=== PATIENT | male | born 1940 | race Caucasian/White ===

== ENCOUNTER 2017-04-29 15:17 | Emergency (ER) | payer MEDICARE, OTHER ==
[2017-04-29 16:54] LABS: Bacteria,Urine 1+ /HPF (Negative); Bilirubin,Urine NEG (Negative); Blood,Urine MOD (Negative); Ketones,Urine NEG (Negative); Leukocyte Esterase,Urine NEG (Negative); Mucus,Urine FEW /HPF; Nitrite,Urine NEG (Negative); Protein,Urine <15 mg/dL mg/dL (Negative); Urobilinogen,Urine < 2.0 mg/dL (<2.0); WBC,Urine < 1.0 /HPF (0.0-6.0)
[2017-04-29 17:15] LABS: Albumin 4.4 g/dL (3.9-5); Albumin/Globulin Ratio 1.3 %; BUN/Creatinine Ratio 12.1; Bilirubin,Total 0.3 mg/dL (0.1-1.2); Calcium 9.6 mg/dL (8.4-10.2); Chloride 102.2 mmol/L (98-107); Potassium 4.6 mmol/L (3.6-5.0); Total Protein 7.8 g/dL (6.3-8.2)
[2017-04-29 17:33] LABS: Basophils % (Auto) 0.6 % (0.0-1.8); Eosinophils % (Auto) 0.6 % (0.0-4.3); Hematocrit 42.8 % (35.5-45.6); Mean Corpuscular HGB Conc 33 % (32-34); Mean Corpuscular Hemoglobin 30 pg (28-32); Mean Corpuscular Volume 90 fl (84-94); Platelet Count 200 K/mm3 (140-440); Red Blood Count 4.75 M/mm3 (3.65-5.03); Red Cell Distribution Width 13.5 % (13.2-15.2); White Blood Count 8.1 K/mm3 (4.5-11.0)
[2017-04-29] MEDS ORDERED: ZOFRAN IM ONE (22:22)
[2017-04-29] MEDS ORDERED: MORPHINE IM ONE (22:22)
--- NOTE | 2017-04-29 22:28 | Emergency Department Report ---
HPI - General Chief Complaint: Abdominal Pain Time Seen by Provider: 04/29/17 22:15 - HPI HPI: Room 4 The patient is a 76-year-old male presented with a chief complaint of abdominal pain. The patient states for the past 2 weeks has had intermittent pain in the left lower quadrant. Patient states he also has constipation requiring frequent use of laxatives. Patient states his last bowel movement occurred today. Patient describes pain as sharp in nature. Patient denies nausea vomiting or diarrhea. Patient denies any history of fever. Patient denies dysuria or hematuria. The patient currently gives his pain score of 8-9/10 Location: Left lower quadrant Duration: 2 weeks intermittently Quality: Sharp Severity: 8-9/10 Modifying factors: [see above] Context: [see above] Mode of transportation: [not driving] ED Past Medical Hx - Past Medical History Previous Medical History?: Yes Hx Hypertension: Yes Hx Diabetes: Yes (Type 2) Additional medical history: Neuropathy - Surgical History Past Surgical History?: Yes Hx Cholecystectomy: Yes (1992) Hx Appendectomy: Yes Additional Surgical History: Gallbladder - Family History Family history: no significant - Social History Smoking Status: Never Smoker Substance Use Type: None (denies illicit drug use) - Medications Home Medications: Home Medications Medication Instructions Recorded Confirmed Last Taken Type Amlodipine Besylate/Benazepril 1 each PO QDAY 08/08/16 08/08/16 08/07/16 History [Lotrel 5-40 mg] Gabapentin [Neurontin] 600 mg PO QPM 08/08/16 08/08/16 08/07/16 History Pravastatin Sodium [Pravastatin] 20 mg PO QHS 08/08/16 08/08/16 08/07/16 History Levofloxacin [Levaquin TAB] 500 mg PO QDAY #7 tablet 08/11/16 Unknown Rx metroNIDAZOLE [Flagyl TAB] 250 mg PO Q8HR #20 tablet 08/11/16 Unknown Rx oxyCODONE /ACETAMINOPHEN [Percocet 1 tab PO Q6H PRN #30 tablet 08/11/16 Unknown Rx 5/325 mg] Ketorolac [Toradol] 10 mg PO Q6H PRN #20 tablet 04/29/17 Unknown Rx Ondansetron [Zofran ODT TAB] 8 mg PO Q8HR #20 tab.rapdis 04/29/17 Unknown Rx oxyCODONE /ACETAMINOPHEN [Percocet 1 - 2 tab PO Q6HR PRN #30 tablet 04/29/17 Unknown Rx 5/325] ED Review of Systems ROS: Stated complaint: STOMACH PAIN LT SIDE Other details as noted in HPI Comment: All other systems reviewed and negative Constitutional: denies: chills, fever Eyes: denies: eye pain, eye discharge, vision change ENT: denies: ear pain, throat pain Respiratory: denies: cough, shortness of breath, wheezing Cardiovascular: denies: chest pain, palpitations Endocrine: no symptoms reported Gastrointestinal: abdominal pain, constipation. denies: nausea, vomiting, diarrhea Genitourinary: denies: urgency, dysuria Musculoskeletal: denies: back pain, joint swelling, arthralgia Skin: denies: rash, lesions Neurological: denies: headache, weakness, paresthesias Psychiatric: denies: anxiety, depression Hematological/Lymphatic: denies: easy bleeding, easy bruising Physical Exam - Physical Exam Vital Signs: Vital Signs 04/29/17 15:59 Temperature 98.7 F Pulse Rate 80 Respiratory 16 Rate Blood Pressure 153/84 O2 Sat by Pulse 95 Oximetry Physical Exam: GENERAL: The patient is well-developed well-nourished male sitting on stretcher not appearing to be in acute distress. [] HEENT: Normocephalic. Atraumatic. Extraocular motions are intact. Patient has moist mucous membranes. NECK: Supple. Trachea midline CHEST/LUNGS: Clear to auscultation. There is no respiratory distress noted. HEART/CARDIOVASCULAR: Regular. There is no tachycardia. There is no gallop rub or murmur. ABDOMEN: Abdomen is soft, with mild discomfort to palpation in the suprapubic and left lower quadrant. There is no rebound or guarding. Patient has normal bowel sounds. There is no abdominal distention. SKIN: There is no rash. There is no edema. There is no diaphoresis. NEURO: The patient is awake, alert, and oriented. The patient is cooperative. The patient has normal speech MUSCULOSKELETAL: There is no CVA tenderness. There is no evidence of acute injury. ED Course Vital Signs 04/29/17 15:59 Temperature 98.7 F Pulse Rate 80 Respiratory 16 Rate Blood Pressure 153/84 O2 Sat by Pulse 95 Oximetry - Reevaluation(s) Reevaluation #1: 04/29/17 23:29 Patient is currently pain-free. CT findings discussed with him. The importance of prompt urological follow-up was discussed. Patient given strong one is to return should he develop worsening symptoms or fever ED Medical Decision Making - Lab Data Result diagrams: 04/29/17 16:39 04/29/17 16:39 Laboratory Tests 04/29/17 04/29/17 04/29/17 16:00 16:39 16:39 WBC 8.1 RBC 4.75 Hgb 14.0 Hct 42.8 MCV 90 MCH 30 MCHC 33 RDW 13.5 Plt Count 200 Lymph % (Auto) 31.0 Gosper % (Auto) 12.2 H Eos % (Auto) 0.6 Baso % (Auto) 0.6 Lymph # 2.5 Gosper # 1.0 H Eos # 0.0 Baso # 0.0 Seg Neutrophils % 55.6 Seg Neutrophils # 4.5 Sodium 142 Potassium 4.6 Chloride 102.2 Carbon Dioxide 25 Anion Gap 19 BUN 23 H Creatinine 1.9 H Estimated GFR 42 BUN/Creatinine Ratio 12.10 Glucose 100 Calcium 9.6 Total Bilirubin 0.30 AST 17 ALT 15 Alkaline Phosphatase 73 Total Protein 7.8 Albumin 4.4 Albumin/Globulin Ratio 1.3 Lipase 30 Urine Color Yellow Urine Turbidity Clear Urine pH 5.0 Ur Specific Girdler 1.019 Urine Protein <15 mg/dl Urine Glucose (UA) Neg Urine Ketones Neg Urine Blood Mod Urine Nitrite Neg Urine Bilirubin Neg Urine Urobilinogen < 2.0 Ur Leukocyte Esterase Neg Urine WBC (Auto) < 1.0 Urine RBC (Auto) 14.0 U Epithel Cells (Auto) < 1.0 Urine Bacteria (Auto) 1+ Urine Mucus Few - Radiology Data Radiology results: report reviewed (CT abdomen and pelvis), image reviewed (CT abdomen and pelvis) CT abdomen and pelvis for this is read by radiologist)-12 x 6 x 8 mm calculus in the proximal to mid left ureter causing mild to moderate left sided hydroureteronephrosis. - Differential Diagnosis diverticulitis, renal colic, UTI, pyelonephritis Critical care attestation.: If time is entered above; I have spent that time in minutes in the direct care of this critically ill patient, excluding procedure time. ED Disposition Clinical Impression: Abdominal pain, Renal insufficiency, Renal colic on left side Disposition: DC-01 TO HOME OR SELFCARE Is pt being admited?: No Does the pt Need Aspirin: No Condition: Stable Instructions: Renal Colic (ED) Additional Instructions: Return to the emergency department immediately should you develop worsening symptoms, fever, inability to tolerate food or liquid or any other concerns. Prescriptions: Ketorolac [Toradol] 10 mg PO Q6H PRN #20 tablet PRN Reason: Pain Ondansetron [Zofran ODT TAB] 8 mg PO Q8HR #20 tab.rapdis oxyCODONE /ACETAMINOPHEN [Percocet 5/325] 1 - 2 tab PO Q6HR PRN #30 tablet PRN Reason: Pain Referrals: PRIMARY CARE, [Primary Care Provider] - 3-5 Days ALEX ALVAREZ MD [Staff Physician] - [facility] (Dr. Mcnelil is a urologist. Please follow up with him for further evaluation) Time of Disposition: 23:26
--- NOTE | 2017-04-29 22:55 | Cat Scan Report ---
FINAL REPORT EXAM: CT ABDOMEN PELVIS WO CON HISTORY: left lower quadrant abdominal pain COMPARISON: None available. TECHNIQUE: Contiguous axial images were obtained. Additional sagittal and coronal reformatted images were obtained. FINDINGS: Within the proximal to mid left ureter, there is a 12 x 8 by 6 millimeter calculus causing mild to moderate left-sided hydroureteronephrosis. There additional punctate nonobstructive left renal calculi. Mild left-sided perinephric fat stranding. There are punctate nonobstructive right renal calculi. No hydronephrosis on the right. Mild wall thickening the urinary bladder with adjacent fat stranding concerning for possible cystitis. Prostate gland is grossly unremarkable. Multiple pelvic phleboliths. Mild linear atelectasis at the lung bases. Gallbladder surgically absent. Common bile duct towards the pancreatic head region measures up to 7-8 millimeters, within normal limits for patient age. Liver, spleen, pancreas are grossly unremarkable. Mild nodular thickening of adrenal glands. Aorta is normal in caliber. Large and small bowel loops are normal in caliber. No focal inflammatory changes the bowel. Prior stripe appendix bony pelvis is grossly intact. Mild to moderate degenerative changes of the lumbar spine. IMPRESSION: 12 x 6 x 8 millimeter calculus in the proximal to mid left ureter causing mild to moderate left-sided hydroureteronephrosis. There additional nonobstructive renal calculi bilaterally. Wall thickening and fat stranding urinary bladder concerning for cystitis. Correlation with urinalysis suggested.
[2017-04-29 23:42] VITALS: BP 148/70
== END 2017-04-29 23:44 | disposition home or self-care (01) ==
LOC: ED 15:17
DX: N23 Unspecified renal colic (principal); N28.9 Disorder of kidney and ureter, unspecified; R10.32 Left lower quadrant pain; I10 Essential (primary) hypertension; E11.9 Type 2 diabetes mellitus without complications
CPT/HCPCS: 36415; 74176; 80053; 81001; 83690; 85025; 96372; 99284; J2270; J2405

== ENCOUNTER 2017-05-04 07:35 | Inpatient (IN) | payer MEDICARE, OTHER ==
[2017-05-04 08:18] LABS: Basophils % (Auto) 0.9 % (0.0-1.8); Eosinophils % (Auto) 0.4 % (0.0-4.3); Hemoglobin 14.1 gm/dl (11.8-15.2); Mean Corpuscular HGB Conc 34 % (32-34); Mean Corpuscular Hemoglobin 30 pg (28-32); Mean Corpuscular Volume 89 fl (84-94); Platelet Count 195 K/mm3 (140-440); Red Blood Count 4.73 M/mm3 (3.65-5.03); Red Cell Distribution Width 13.4 % (13.2-15.2); White Blood Count 6.7 K/mm3 (4.5-11.0)
[2017-05-04 08:30] LABS: BUN/Creatinine Ratio 10.76; Calcium 9.6 mg/dL (8.4-10.2); Chloride 102.5 mmol/L (98-107)
[2017-05-04 08:30] LABS: Bilirubin,Urine NEG (Negative); Blood,Urine MOD (Negative); Ketones,Urine NEG (Negative); Leukocyte Esterase,Urine TR (Negative); Nitrite,Urine NEG (Negative); Protein,Urine <15 mg/dL mg/dL (Negative); Urobilinogen,Urine < 2.0 mg/dL (<2.0)
[2017-05-04] MEDS ORDERED: MORPHINE IV ONE (08:42)
[2017-05-04] MEDS ORDERED: NACL 0.9% 1000 ML 1,000 ML IV ONE (08:42)
--- NOTE | 2017-05-04 08:42 | Emergency Department Report ---
HPI - General Chief Complaint: Abdominal Pain Time Seen by Provider: 05/04/17 08:30 - HPI HPI: This is a 76 year-old male presents to the emergency department with a complaint of left-sided flank and abdominal pain and a history of recent kidney stone. The patient was here on April 29 was found to have a 12 x 6 x 8 mm left ureter calculus. He was discharged home to follow up with urology, which he did. There plan was to do lithotripsy but he was called back at the end of the day saying they needed permission by the PCP, Dr. Ricky Najera. The patient was unable to get in touch with his PCP at that late hour. He now presents with increased pain. He denies any fever, nausea, vomiting or any inability to urinate or gross hematuria. He otherwise has a past medical history of gallstones and previous cholecystectomy, previous appendectomy. He has a past medical history of non-insulin dependent diabetes and hypertension. ED Past Medical Hx - Past Medical History Previous Medical History?: Yes Hx Hypertension: Yes Hx Diabetes: Yes (Type 2) Hx HIV: No Additional medical history: Neuropathy - Surgical History Past Surgical History?: Yes Hx Cholecystectomy: Yes (1992) Hx Appendectomy: Yes Additional Surgical History: Gallbladder - Social History Smoking Status: Never Smoker Substance Use Type: None - Medications Home Medications: Home Medications Medication Instructions Recorded Confirmed Last Taken Type oxyCODONE /ACETAMINOPHEN [Percocet 1 tab PO Q6H PRN #30 tablet 08/11/16 Unknown Rx 5/325 mg] Ketorolac [Toradol] 10 mg PO Q6H PRN #20 tablet 04/29/17 05/04/17 Unknown Rx Ondansetron [Zofran ODT TAB] 8 mg PO Q8HR #20 tab.rapdis 04/29/17 05/04/17 Unknown Rx Amlodipine Besylate/Benazepril 1 each PO QDAY 05/04/17 05/04/17 1 Day Ago History [Lotrel 5-40 mg] Cefuroxime Axetil [Ceftin] 250 mg PO BID 05/04/17 05/04/17 Unknown History Dorzolamide/Timolol/Pf [Cosopt Pf 1 drops OU TID 05/04/17 05/04/17 1 Day Ago History Eye Drops] Gabapentin [Neurontin] 300 mg PO BID 05/04/17 05/04/17 1 Day Ago History Pravastatin (Nf) [Pravachol] 80 mg PO QHS 05/04/17 05/04/17 1 Day Ago History ED Review of Systems ROS: Stated complaint: LEFT SIDE ABDOMINAL PAIN,POSSIBLE GALLSTONE Other details as noted in HPI Comment: All other systems reviewed and negative Constitutional: denies: chills, fever Eyes: denies: eye pain, eye discharge, vision change ENT: denies: ear pain, throat pain Respiratory: denies: cough, shortness of breath, wheezing Cardiovascular: denies: chest pain, palpitations Gastrointestinal: abdominal pain. denies: nausea, vomiting Genitourinary: denies: urgency, dysuria Musculoskeletal: denies: back pain, joint swelling, arthralgia Skin: denies: rash, lesions Neurological: denies: headache, weakness, paresthesias Physical Exam - Physical Exam Vital Signs: Vital Signs 05/04/17 07:46 Temperature 98.2 F Pulse Rate 72 Respiratory 16 Rate Blood Pressure 157/86 O2 Sat by Pulse 100 Oximetry Physical Exam: GENERAL: The patient is well-developed well-nourished. HENT: Normocephalic. Atraumatic. Patient has moist mucous membranes. EYES: Extraocular motions are intact. Pupils equal reactive to light bilaterally. NECK: Supple. Trachea is midline. CHEST/LUNGS: Clear to auscultation. There is no respiratory distress noted. HEART/CARDIOVASCULAR: Regular. There is no tachycardia. There is no gallop rub or murmur. ABDOMEN: Abdomen is soft, nontender to palpation. No guarding rebound tenderness. Patient has normal bowel sounds. There is no abdominal distention. SKIN: There is no rash. There is no edema. There is no diaphoresis. NEURO: The patient is awake, alert, and oriented. The patient is cooperative. The patient has no focal neurologic deficits. The patient has normal speech. MUSCULOSKELETAL: There is no tenderness or deformity. There is no limitation range of motion. There is no evidence of acute injury. ED Course Vital Signs 05/04/17 07:46 Temperature 98.2 F Pulse Rate 72 Respiratory 16 Rate Blood Pressure 157/86 O2 Sat by Pulse 100 Oximetry - Consultations Consultation #1: I spoke to Dr. Chan, the partner of Dr. Shah, who recommends admission to the hospital and keeping the patient nothing by mouth and they will see the patient for further evaluation/intervention. 05/04/17 12:16 ED Medical Decision Making - Lab Data Result diagrams: 05/04/17 08:08 05/04/17 08:08 - Medical Decision Making 76-year-old male presents with a history of a 12 mm left ureter stone that does not appear to be passing and patient is due for lithotripsy. Labs show some worsening of his renal insufficiency. Spoke to urology who recommended admission, nothing by mouth and he will be seen by them as a consultation for further evaluation and possible intervention. Vital signs stable. Patient made aware of the plan and understands and agrees. - Differential Diagnosis nephrolithiasis, hydronephrosis, malignancy, pyelonephritis Critical Care Time: No Critical care attestation.: If time is entered above; I have spent that time in minutes in the direct care of this critically ill patient, excluding procedure time. ED Disposition Clinical Impression: Renal colic on left side Hydronephrosis Qualifiers: Hydronephrosis type: with ureteral calculous obstruction Qualified Code(s): N13.2 - Hydronephrosis with renal and ureteral calculous obstruction Acute on chronic renal failure Qualifiers: Acute renal failure type: unspecified Chronic kidney disease stage: unspecified stage Qualified Code(s): N17.9 - Acute kidney failure, unspecified; N18.9 - Chronic kidney disease, unspecified Hypertension Qualifiers: Hypertension type: essential hypertension Qualified Code(s): I10 - Essential ( primary) hypertension Disposition: OP ADMIT IP TO THIS HOSP Is pt being admited?: Yes Condition: Stable Time of Disposition: 12:19
--- NOTE | 2017-05-04 09:46 | Admit Criteria Form ---
Admission Criteria Documentation: UROLOGIC DISEASE G Clinical Indications for Admission to Inpatient Care (Place ' X' for any and all applicable criteria): Hospital admission is needed for appropriate care of the patient because of 1 or more of the following: [ ]I. New-onset Reduced urine output, or hydronephrosis remaining after emergency or observation level care (as appropriate ) [X ]II. Renal disease needing inpatient care indicated by 1 or more of the following(2)(3)(4): [X ]a) Acute renal failure [ ]b) Significant uremic complications [ ]c) Acute kidney injury (that does not qualify as Acute renal failure ) requiring inpatient care indicated by ALL of the following(5)(6)(7)(8) (9): [ ]i) Worsening clinical status (eg, rising creatinine) despite outpatient and observation care treatment (eg, hydration) [ ]ii) Acute kidney injury indicated by 1 or more of the following: [ ]1) 2-fold or more rise in serum creatinine from baseline [ ]2) Reduction of more than 50% in estimated glomerular filtration rate from baseline [ ]3) Urine output less than 0.5 mL/kg/hr for 12 hours despite adequate volume status [ ]d) Systemic cause (eg, Goodpasture syndrome ) needing inpatient care [ ]e) Rapidly progressive renal disease needing inpatient care (eg, plasmapheresis, immunosuppression ) Anasarca needing inpatient care [ ]f) Hemoptysis [ ]g) Hemolysis, thrombosis, or infraction [ ]h) Anasarca needing inpatient care [ ]III. New-onset or uncontrolled nephrogenic diabetes insipidus [ ]IV. Urologic infection requiring inpatient care as indicated by 1 or more of the following(10)(11)(12): [ ]a) Hemodynamic instability [ ]b) Dehydration that is severe or persistent [ ]c) Failure of outpatient treatment [ ]d) Benigno's gangrene [ ]e) Urinary obstruction [ ]f) Immunocompromised state (eg, chronic steroid use ) [ ]g) Known renal or urologic abnormalities(eg, indwelling catheter, structural abnormalities ) [ ]h) Recent urologic manipulation or procedure Urinary obstruction [ ]i) Abscess requiring drainage Immunocompromised state [ ]V. Acute urinary retention requiring inpatient management as indicated by ANY ONE of the following(1)(13): [ ]a) Retention cannot be alleviated via emergency or observation level care (eg, urinary catheter placement) [ ]b) Hemodynamic instability [ ]c) Acute neurologic etiology (eg, cauda equina) [ ]d) Dehydration or other complications not manageable with emergency or observation level care [ ]e) Acute kidney injury (that does not qualify as Acute renal failure ) requiring inpatient care indicated by ALL of the following(5)(6)(7)(8) (9): [ ]i) Acute kidney injury indicated by ANY ONE of the following: [ ]1) 2-fold or more rise in serum creatinine from baseline [ ]2) Reduction of more than 50% in estimated glomerular filtration rate from baseline [ ]ii) Worsening clinical status (eg, rising creatinine) despite outpatient and observation care treatment (eg, hydration) [ ]. Gross hematuria requiring inpatient management as indicated by ANY ONE of the following(1)(2): [ ]a) Evidence of renal obstruction [ ]b) Reduced urine output [ ]c) Clot retention after urinary catheterization and irrigation [ ]d) Severe Anemia [ ]e) Systemic cause needing inpatient treatment (eg, Goodpasture syndrome) [ ]VII. Priapism not responsive to emergency or observation care treatment [ ]VII. Scrotal, testicular, or epididymal disorder requiring inpatient care indicated by 1 or more of the following(1)(14)(15)(16): [ ]a) Scrotal edema or infection not manageable with emergency or observation level care [ ]b) Orchitis not manageable with emergency or observation level care [ ]c) Epididymitis not manageable with emergency or observation level of care [ ]d) Other scrotal, testicular, or epididymal disorder (eg, infection, inflammation) not manageable with emergency or observation level care [ ]IX. Complications of transplanted kidney indicated by 1 or more of the following [ ]a) Acute graft rejection requiring inpatient management (eg, intravenous immunosuppression) [ ]b) Acute kidney injury indicated by ALL of the following i) Acute kidney injury indicated by 1 or more of the following 1) 2-fold or more rise in serum creatinine from baseline 2) Reduction of more than 50% in estimated glomerular filtration rate from baseline 3) Urine output less than 0.5 mL/kg/hr for 12 hours despite adequate volume status ii) Kidney injury too severe or not responsive to outpatient and observation care treatment (eg, hydration) [ ]c) Infection requiring inpatient management (eg, Hemodynamic instability, need for intravenous antimicrobial treatment) [ ]d) Other complication of transplanted kidney requiring patient management (eg, severe diarrhea leading to malabsorption) [ ]X. Trauma to renal, genital, or urologic system requiring inpatient medical care [ ]XI. Urologic Disease condition, symptom, or finding for which emergency and observation care have failed or are not considered appropriate. The original [employer] content created by [employer] has been revised. The portions of the content which have been revised are identified through the use of italic text or in bold, and [facility] has neither reviewed nor approved the modified material. All other unmodified content is copyright [email or web address]. Please see references footnoted in the original [email or web address] edition 2016 Admission Criteria Met: Yes
[2017-05-04] MEDS ORDERED: TYLENOL PO PRN (10:04)
[2017-05-04] MEDS ORDERED: DULCOLAX PR PRN (10:04)
[2017-05-04] MEDS ORDERED: ZOFRAN IV PRN (10:09)
[2017-05-04] MEDS ORDERED: MORPHINE IV PRN (10:10)
--- NOTE | 2017-05-04 10:12 | History and Physical Report ---
History of Present Illness Date of examination: 05/04/17 Date of admission: 05/04/2017 Chief complaint: left flank pain History of present illness: Patient is a 76-year-old black male with past medical history of hypertension and diabetes [place] who presented to the emergency department with a complaint of left-sided flank and left lower abdominal pain. The patient states for the past 3 weeks has had intermittent pain in the left lower quadrant. Patient describes pain as sharp in nature and localized. The intensity of the pain has been increasing over the past two days and on pain scale he rates the pain at 10 out of 10 when the pain come. Eating makes the pain worst. No alleviating factors. Patient denies nausea vomiting or diarrhea. Patient denies any history of fever. Patient denies dysuria or hematuria. Patient currently denies any pain. Patient was here on April 29/2017 for the same symptoms was found to have a 12 x 6 x 8 mm left ureter calculus. Patient was discharge and advised to follow up with urology. Patient went to urology and has a plan to do lithotripsy on 05/03/17 but he was called back at the end of the day saying they needed permission from his PCP, Dr. Ricky Najera. The patient was unable to get in touch with his PCP because was after working hours. The intensity of the pain has been increasing to the point cannot tolerated and decided to come to the emergency department. Past History Past Medical History: diabetes, hypertension Past Surgical History: appendectomy, cholecystectomy Social history: lives with family. denies: smoking, alcohol abuse Family history: CAD, hypertension Medications and Allergies Allergies Allergy/AdvReac Type Severity Reaction Status Date / Time No Known Allergies Allergy Unverified 05/04/17 07:56 Home Medications Medication Instructions Recorded Confirmed Last Taken Type oxyCODONE /ACETAMINOPHEN [Percocet 1 tab PO Q6H PRN #30 tablet 08/11/16 Unknown Rx 5/325 mg] Ketorolac [Toradol] 10 mg PO Q6H PRN #20 tablet 04/29/17 05/04/17 Unknown Rx Ondansetron [Zofran ODT TAB] 8 mg PO Q8HR #20 tab.rapdis 04/29/17 05/04/17 Unknown Rx Amlodipine Besylate/Benazepril 1 each PO QDAY 05/04/17 05/04/17 1 Day Ago History [Lotrel 5-40 mg] Cefuroxime Axetil [Ceftin] 250 mg PO BID 05/04/17 05/04/17 Unknown History Dorzolamide/Timolol/Pf [Cosopt Pf 1 drops OU TID 05/04/17 05/04/17 1 Day Ago History Eye Drops] Gabapentin [Neurontin] 300 mg PO BID 05/04/17 05/04/17 1 Day Ago History Pravastatin (Nf) [Pravachol] 80 mg PO QHS 05/04/17 05/04/17 1 Day Ago History Active Meds: Active Medications Acetaminophen (Tylenol) 650 mg PO Q4H PRN PRN Reason: Pain MILD(1-3)/Fever >100.5/[place] Bisacodyl (Dulcolax) 10 mg NM QDAY PRN PRN Reason: Constipation unrelieved by MOM Heparin Sodium (Porcine) (Heparin) 5,000 unit SUB-Q Q12HR EMILY Sodium Chloride (Nacl 0.9% 1000 Ml) 1,000 mls @ 250 mls/hr IV ONCE ONE Stop: 05/04/17 12:41 Last Admin: 05/04/17 09:00 Dose: 250 mls/hr Dextrose/Sodium Chloride (D5ns) 1,000 mls @ 125 mls/hr IV DIRECT EMILY Morphine Sulfate (Morphine) 2 mg IV Q4H PRN PRN Reason: Pain, Moderate (4-6) Ondansetron HCl (Zofran) 4 mg IM Q4H PRN PRN Reason: Nausea And Vomiting Review of Systems Constitutional: no weight gain, no fever, no chills, no sweats Ears, nose, mouth and throat: no ear pain, no ear discharge, no decreased hearing, no nose pain, no nasal congestion Cardiovascular: no chest pain, no orthopnea, no palpitations, no rapid/ irregular heart beat, no edema, no syncope, no lightheadedness, no shortness of breath Respiratory: no cough with sputum, no excessive sputum, no hemoptysis, no shortness of breath Gastrointestinal: abdominal pain (left flank and lower abdominal pain), no nausea, no vomiting, no diarrhea, no constipation Genitourinary Male: no hematuria, no flank pain, no discharge, no urinary frequency, no urinary hesitancy Rectal: no incontinence, no bleeding Musculoskeletal: no neck stiffness, no shooting arm pain, no arm numbness/ tingling, no low back pain, no shooting leg pain Integumentary: no pruritis, no redness, no sores, no wounds Neurological: no head injury, no transient paralysis, no paralysis, no weakness Psychiatric: no memory loss, no change in sleep habits, no sleep disturbances, no insomnia Endocrine: no cold intolerance, no heat intolerance, no polyphagia, no excessive thirst, no polydipsia Hematologic/Lymphatic: no easy bruising, no easy bleeding Allergic/Immunologic: no urticaria, no allergic rhinitis Exam - Constitutional Vitals: Temp Pulse Resp BP Pulse Ox 98.2 F 72 18 157/86 100 05/04/17 07:46 05/04/17 07:46 05/04/17 09:07 05/04/17 07:46 05/04/17 08:46 General appearance: Present: no acute distress - EENT Eyes: Present: PERRL ENT: hearing intact - Neck Neck: Present: supple - Respiratory Respiratory effort: normal Respiratory: bilateral: CTA - Cardiovascular Heart rate: 72 Rhythm: regular Heart Sounds: Present: S1 & S2 - Extremities Extremities: no ischemia Peripheral Pulses: within normal limits - Abdominal General gastrointestinal: Present: soft, non-tender, other (left flank pain) Male genitourinary: Present: deferred - Rectal Rectal Exam: deferred - Integumentary Integumentary: Present: clear, warm, dry - Musculoskeletal Musculoskeletal: strength equal bilaterally - Psychiatric Psychiatric: appropriate mood/affect - Neurologic Neurologic: CNII-XII intact - Allied Health Allied health notes reviewed: nursing Results - Labs CBC & Chem 7: 05/04/17 08:08 05/04/17 08:08 Labs: Laboratory Last Values WBC 6.7 K/mm3 (4.5-11.0) 05/04/17 08:08 RBC 4.73 M/mm3 (3.65-5.03) 05/04/17 08:08 Hgb 14.1 gm/dl (11.8-15.2) 05/04/17 08:08 Hct 42.0 % (35.5-45.6) 05/04/17 08:08 MCV 89 fl (84-94) 05/04/17 08:08 MCH 30 pg (28-32) 05/04/17 08:08 MCHC 34 % (32-34) 05/04/17 08:08 RDW 13.4 % (13.2-15.2) 05/04/17 08:08 Plt Count 195 K/mm3 (140-440) 05/04/17 08:08 Lymph % (Auto) 28.3 % (13.4-35.0) 05/04/17 08:08 [place] % (Auto) 12.1 % (0.0-7.3) H 05/04/17 08:08 Eos % (Auto) 0.4 % (0.0-4.3) 05/04/17 08:08 Baso % (Auto) 0.9 % (0.0-1.8) 05/04/17 08:08 Lymph # 1.9 K/mm3 (1.2-5.4) 05/04/17 08:08 [place] # 0.8 K/mm3 (0.0-0.8) 05/04/17 08:08 Eos # 0.0 K/mm3 (0.0-0.4) 05/04/17 08:08 Baso # 0.1 K/mm3 (0.0-0.1) 05/04/17 08:08 Seg Neutrophils % 58.3 % (40.0-70.0) 05/04/17 08:08 Seg Neutrophils # 3.9 K/mm3 (1.8-7.7) 05/04/17 08:08 Sodium 142 mmol/L (137-145) 05/04/17 08:08 Potassium 5.0 mmol/L (3.6-5.0) 05/04/17 08:08 Chloride 102.5 mmol/L (98-107) 05/04/17 08:08 Carbon Dioxide 27 mmol/L (22-30) 05/04/17 08:08 Anion Gap 18 mmol/L 05/04/17 08:08 BUN 28 mg/dL (9-20) H 05/04/17 08:08 Creatinine 2.6 mg/dL (0.8-1.5) H 05/04/17 08:08 Estimated GFR 29 ml/min 05/04/17 08:08 BUN/Creatinine Ratio 10.76 % 05/04/17 08:08 Glucose 110 mg/dL (75-100) H 05/04/17 08:08 Calcium 9.6 mg/dL (8.4-10.2) 05/04/17 08:08 Urine Color Yellow (Yellow) 05/04/17 08:05 Urine Turbidity Clear (Clear) 05/04/17 08:05 Urine pH 8.0 (5.0-7.0) H 05/04/17 08:05 Ur Specific [place] 1.018 (1.003-1.030) 05/04/17 08:05 Urine Protein <15 mg/dl mg/dL (Negative) 05/04/17 08:05 Urine Glucose (UA) Neg mg/dL (Negative) 05/04/17 08:05 Urine Ketones Neg mg/dL (Negative) 05/04/17 08:05 Urine Blood Mod (Negative) 05/04/17 08:05 Urine Nitrite Neg (Negative) 05/04/17 08:05 Urine Bilirubin Neg (Negative) 05/04/17 08:05 Urine Urobilinogen < 2.0 mg/dL (<2.0) 05/04/17 08:05 Ur Leukocyte Esterase Tr (Negative) 05/04/17 08:05 Urine WBC (Auto) 6.0 /HPF (0.0-6.0) 05/04/17 08:05 Urine RBC (Auto) 5.0 /HPF (0.0-6.0) 05/04/17 08:05 - Imaging and Cardiology CT scan - abdomen: image reviewed (12 x 6 x 8 mm left ureter calculus) Assessment and Plan Assessment and plan: Patient is a 76-year-old black male with past medical history of hypertension and diabetes [place] who presented to the emergency department with a complaint of left-sided flank and left lower abdominal pain. Assessment/Plan Obstructive uropathy Secondary to calculus CT of the abdomen revealed 12x6x8 millimeter calculus in the proximal to mid left ureter with mild to moderate left-sided hydroureteronephrosis . Nothing by mouth Patient scheduled for lithotripsy IV fluid hydration at NS 125cc/hr Urology consult Acute kidney injury/acute tubular stasis secondary to Obstructing stone Hold Benazepril for now due to LEAH IV fluid hydration Repeat BMP Diabetes mellitus Accu-chek before meals and at bedtime. Sliding scale insulin/NovoLog ADA consistent carbohydrate diet Diabetic education Hypertension Hold Benazepril Resume Amlodipine Closely monitor blood pressure Hyperlipidemia Resume home antilipid agents. Peripheral Neuropathy Resume Gabapentin DVT prophylaxis Lovenox Advance Directives: Yes VTE prophylaxis?: Chemical Contraindication Mechanical VTE Prophylaxis: Treatment Not Indicated Plan of care discussed with patient/family: Yes
[2017-05-04] MEDS ORDERED: DORZOLAMIDE OU SCH (14:00)
[2017-05-04] MEDS ORDERED: TIMOLOL OU SCH (14:00)
[2017-05-04] MEDS ORDERED: LACTATED RINGERS 1,000 ML ONE (18:22)
--- NOTE | 2017-05-04 19:04 | Anesthesia Consultation ---
Anesthesia Consult and Med Hx Date of service: 05/04/17 - Airway Anesthetic Teeth Evaluation: Dentures ROM Head & Neck: Adequate Mental/Hyoid Distance: Adequate Mallampati Class: Class II Intubation Access Assessment: Good - Pulmonary Exam CTA: Yes - Cardiac Exam Cardiac Exam: RRR - Pre-Operative Health Status ASA Pre-Surgery Classification: ASA3 Proposed Anesthetic Plan: General - Cardiovascular System Hx Hypertension: Yes Hx Heart Attack/AMI: No - Central Nervous System Hx Psychiatric Problems: No - Hematic Hx Anemia: No Hx Sickle Cell Disease: No - Other Systems Hx Alcohol Use: No Hx Substance Use: No Hx Cancer: No
--- NOTE | 2017-05-04 19:04 | Anesthesia Day of Surgery ---
Anesthesia Day of Surgery - Day of Surgery Patient Examined: Yes Patient H&P Reviewed: Yes Patient is NPO: Yes
[2017-05-04] MEDS ORDERED: SUBLIMAZE ONE (19:39)
[2017-05-04] MEDS ORDERED: DIPRIVAN 10 MG/ML IV ONE (19:39)
[2017-05-04] MEDS ORDERED: XYLOCAINE MPF 2% ONE (19:39)
[2017-05-04] MEDS ORDERED: ePHEDrine SULFATE ONE (19:51)
[2017-05-04] MEDS ORDERED: ROBINUL ONE (19:54)
[2017-05-04] MEDS ORDERED: OMNIPAQUE 300 MG/50 ML (CATH LAB) IV ONE (20:16)
[2017-05-04] MEDS ORDERED: ANCEF ONE (20:16)
[2017-05-04] MEDS ORDERED: DECADRON ONE (20:18)
[2017-05-04] MEDS ORDERED: ZOFRAN ONE (20:18)
--- NOTE | 2017-05-04 21:39 | Post Operative Note ---
Pre-op diagnosis: left uret 14 mm stone; left hydro / pain Post-op diagnosis: same Findings: impacted, tortuous ureter Procedure: cysto, rpg left stent 4.7 x26; complicated Anesthesia: GETA Surgeon: TOMMY CASANOVA Estimated blood loss: minimal Pathology: none Condition: stable Disposition: PACU
[2017-05-04] MEDS ORDERED: PRAVASTATIN 80 MG PO SCH (22:00)
[2017-05-04] MEDS ORDERED: APRESOLINE IV PRN (23:21)
[2017-05-05] MEDS: HEPARIN SUB-Q SCH ×3 (01:21→23:34)
[2017-05-05] MEDS: ZOCOR PO SCH ×2 (03:45→23:21)
[2017-05-05] MEDS: NEURONTIN PO SCH ×3 (03:45→23:21)
[2017-05-05 05:27] LABS: Basophils % (Auto) 0.3 % (0.0-1.8); Hematocrit 42.8 % (35.5-45.6); Hemoglobin 14.3 gm/dl (11.8-15.2); Mean Corpuscular HGB Conc 33 % (32-34); Mean Corpuscular Hemoglobin 30 pg (28-32); Mean Corpuscular Volume 89 fl (84-94); Platelet Count 200 K/mm3 (140-440); Red Cell Distribution Width 13.6 % (13.2-15.2); White Blood Count 5.8 K/mm3 (4.5-11.0)
[2017-05-05 06:06] LABS: Calcium 9.4 mg/dL (8.4-10.2); Chloride 101.1 mmol/L (98-107)
--- NOTE | 2017-05-05 07:51 | Event Note ---
76M with left ureter obstructed stone, status post cystoscopy and our PEG with left stents by urology. * Obstructive uropathy- status post cystoscopy and stent placement * Acute kidney injury due to vasomotor nephropathy and acute tubular stasis, creatinine trending down, continue IV fluids * Diabetes- continue insulins * Hypertension- continue BP meds
--- NOTE | 2017-05-05 08:47 | Progress Note ---
Assessment and Plan Assessment and plan: Patient is a 76-year-old black male with past medical history of hypertension and diabetes [place] who presented to the emergency department with a complaint of left-sided flank and left lower abdominal pain. Assessment/Plan Obstructive uropathy day #1 status post cystoscopy and stent placement Secondary to calculus CT of the abdomen revealed 12x6x8 millimeter calculus in the proximal to mid left ureter with mild to moderate left-sided hydroureteronephrosis . Patient scheduled for lithotripsy IV fluid hydration at NS 125cc/hr Urology consult Acute kidney injury/acute tubular stasis secondary to Obstructing stone Hold Benazepril for now due to LEAH IV fluid hydration Repeat BMP Diabetes mellitus Accu-chek before meals and at bedtime. Sliding scale insulin/NovoLog ADA consistent carbohydrate diet Diabetic education Hypertension Hold Benazepril Resume Amlodipine Closely monitor blood pressure Hyperlipidemia Resume home antilipid agents. Peripheral Neuropathy Resume Gabapentin DVT prophylaxis Lovenox Plan discussed with patient and his nurse D/C with 2 days, if patient continues to improve. History Interval history: Patient denies nausea vomiting or diarrhea. Patient denies any history of fever. Patient denies dysuria or hematuria. Patient currently denies any pain. Hospitalist Physical - Constitutional Vitals: Temp Pulse Resp BP Pulse Ox 97.6 F 54 L 18 168/71 99 05/05/17 07:25 05/05/17 07:26 05/05/17 07:26 05/05/17 07:26 05/05/17 07:26 General appearance: Present: no acute distress - EENT Eyes: Present: PERRL ENT: hearing intact - Neck Neck: Present: supple - Respiratory Respiratory effort: normal Respiratory: bilateral: CTA - Cardiovascular Rhythm: regular Heart Sounds: Present: S1 & S2 - Extremities Extremities: no ischemia Peripheral Pulses: within normal limits - Abdominal General gastrointestinal: soft, non-tender - Integumentary Integumentary: Present: clear, warm, dry - Psychiatric Psychiatric: appropriate mood/affect - Neurologic Neurologic: CNII-XII intact - Allied Health Allied health notes reviewed: nursing Results - Labs CBC & Chem 7: 05/05/17 05:10 05/05/17 05:10 Labs: Laboratory Last Values WBC 5.8 K/mm3 (4.5-11.0) 05/05/17 05:10 RBC 4.80 M/mm3 (3.65-5.03) 05/05/17 05:10 Hgb 14.3 gm/dl (11.8-15.2) 05/05/17 05:10 Hct 42.8 % (35.5-45.6) 05/05/17 05:10 MCV 89 fl (84-94) 05/05/17 05:10 MCH 30 pg (28-32) 05/05/17 05:10 MCHC 33 % (32-34) 05/05/17 05:10 RDW 13.6 % (13.2-15.2) 05/05/17 05:10 Plt Count 200 K/mm3 (140-440) 05/05/17 05:10 Lymph % (Auto) 10.2 % (13.4-35.0) L 05/05/17 05:10 [place] % (Auto) 1.6 % (0.0-7.3) 05/05/17 05:10 Eos % (Auto) 0.0 % (0.0-4.3) 05/05/17 05:10 Baso % (Auto) 0.3 % (0.0-1.8) 05/05/17 05:10 Lymph # 0.6 K/mm3 (1.2-5.4) L 05/05/17 05:10 [place] # 0.1 K/mm3 (0.0-0.8) 05/05/17 05:10 Eos # 0.0 K/mm3 (0.0-0.4) 05/05/17 05:10 Baso # 0.0 K/mm3 (0.0-0.1) 05/05/17 05:10 Seg Neutrophils % 87.9 % (40.0-70.0) H 05/05/17 05:10 Seg Neutrophils # 5.1 K/mm3 (1.8-7.7) 05/05/17 05:10 Sodium 139 mmol/L (137-145) 05/05/17 05:10 Potassium 5.0 mmol/L (3.6-5.0) 05/05/17 05:10 Chloride 101.1 mmol/L (98-107) 05/05/17 05:10 Carbon Dioxide 21 mmol/L (22-30) L 05/05/17 05:10 Anion Gap 22 mmol/L 05/05/17 05:10 BUN 19 mg/dL (9-20) 05/05/17 05:10 Creatinine 1.9 mg/dL (0.8-1.5) H 05/05/17 05:10 Estimated GFR 35 ml/min 05/05/17 05:10 BUN/Creatinine Ratio 10.00 % 05/05/17 05:10 Glucose 227 mg/dL (75-100) H 05/05/17 05:10 Calcium 9.4 mg/dL (8.4-10.2) 05/05/17 05:10 Urine Color Yellow (Yellow) 05/04/17 08:05 Urine Turbidity Clear (Clear) 05/04/17 08:05 Urine pH 8.0 (5.0-7.0) H 05/04/17 08:05 Ur Specific [place] 1.018 (1.003-1.030) 05/04/17 08:05 Urine Protein <15 mg/dl mg/dL (Negative) 05/04/17 08:05 Urine Glucose (UA) Neg mg/dL (Negative) 05/04/17 08:05 Urine Ketones Neg mg/dL (Negative) 05/04/17 08:05 Urine Blood Mod (Negative) 05/04/17 08:05 Urine Nitrite Neg (Negative) 05/04/17 08:05 Urine Bilirubin Neg (Negative) 05/04/17 08:05 Urine Urobilinogen < 2.0 mg/dL (<2.0) 05/04/17 08:05 Ur Leukocyte Esterase Tr (Negative) 05/04/17 08:05 Urine WBC (Auto) 6.0 /HPF (0.0-6.0) 05/04/17 08:05 Urine RBC (Auto) 5.0 /HPF (0.0-6.0) 05/04/17 08:05
--- NOTE | 2017-05-05 09:22 | Fluoroscopy Report ---
Retrograde pyelogram: The initial image does contain contrast however the there is opacity overlying the proximal ureter which is consistent with a calculus. Additional imaging demonstrates that this represents a large filling defect in the proximal ureter and there is mild dilatation of the intrarenal collecting system. An internal stent is left in place with no change in the position of the ureteral calculus.
[2017-05-05] MEDS: NORVASC PO SCH (10:18)
[2017-05-05] MEDS: D5NS 1,000 ML IV SCH ×2 (10:31→18:41)
[2017-05-05] MEDS: APRESOLINE IV PRN (14:16)
--- NOTE | 2017-05-05 14:29 | Progress Note ---
Subjective Date of service: 05/05/17 Interval history: POD1, Pt has no anesthesia complication, except a sore throat. Pain is well controlled. No N/V. Ambulated well. [place] is in. Discharge plan is unknown Objective - Constitutional Vitals: Vital Signs - 12hr 05/05/17 05/05/17 05/05/17 02:30 04:29 04:30 Temperature 98.2 F Pulse Rate 70 Respiratory 20 24 Rate Blood Pressure 176/78 180/78 O2 Sat by Pulse 99 Oximetry 05/05/17 05/05/17 05/05/17 05:09 07:25 07:26 Temperature 98.2 F 97.6 F Pulse Rate 62 54 L Respiratory 20 18 Rate Blood Pressure 168/71 O2 Sat by Pulse 99 Oximetry 05/05/17 05/05/17 05/05/17 07:28 07:40 07:42 Temperature Pulse Rate 55 L 94 H 94 H Respiratory 18 Rate Blood Pressure 118/79 O2 Sat by Pulse 99 97 95 Oximetry 05/05/17 05/05/17 05/05/17 10:18 12:09 12:10 Temperature 98.2 F Pulse Rate 54 L 92 H Respiratory Rate Blood Pressure 168/71 187/105 O2 Sat by Pulse 98 Oximetry 05/05/17 14:16 Temperature Pulse Rate 92 H Respiratory Rate Blood Pressure 187/105 O2 Sat by Pulse Oximetry - Labs CBC & Chem 7: 05/05/17 05:10 05/05/17 05:10 Labs: Abnormal lab results 05/05/17 05/05/17 Range/Units 05:10 05:10 Lymph % (Auto) 10.2 L (13.4-35.0) % Lymph # 0.6 L (1.2-5.4) K/mm3 Seg Neutrophils % 87.9 H (40.0-70.0) % Carbon Dioxide 21 L (22-30) mmol/L Creatinine 1.9 H (0.8-1.5) mg/dL Glucose 227 H (75-100) mg/dL
--- NOTE | 2017-05-05 15:23 | Consultation ---
Past History Past Medical History: diabetes, hypertension Past Surgical History: appendectomy, cholecystectomy Social history: lives with family. denies: smoking, alcohol abuse Family history: CAD, hypertension Medications and Allergies Allergies Allergy/AdvReac Type Severity Reaction Status Date / Time No Known Allergies Allergy Unverified 05/04/17 07:56 Home Medications Medication Instructions Recorded Confirmed Last Taken Type oxyCODONE /ACETAMINOPHEN [Percocet 1 tab PO Q6H PRN #30 tablet 08/11/16 Unknown Rx 5/325 mg] Ketorolac [Toradol] 10 mg PO Q6H PRN #20 tablet 04/29/17 05/04/17 Unknown Rx Ondansetron [Zofran ODT TAB] 8 mg PO Q8HR #20 tab.rapdis 04/29/17 05/04/17 Unknown Rx Amlodipine Besylate/Benazepril 1 each PO QDAY 05/04/17 05/04/17 1 Day Ago History [Lotrel 5-40 mg] Cefuroxime Axetil [Ceftin] 250 mg PO BID 05/04/17 05/04/17 Unknown History Dorzolamide/Timolol/Pf [Cosopt Pf 1 drops OU TID 05/04/17 05/04/17 1 Day Ago History Eye Drops] Gabapentin [Neurontin] 300 mg PO BID 05/04/17 05/04/17 1 Day Ago History Pravastatin (Nf) [Pravachol] 80 mg PO QHS 05/04/17 05/04/17 1 Day Ago History Active Meds: Active Medications Acetaminophen (Tylenol) 650 mg PO Q4H PRN PRN Reason: Pain MILD(1-3)/Fever >100.5/[place] Amlodipine Besylate (Norvasc) 5 mg PO QDAY [facility] Last Admin: 05/05/17 10:18 Dose: 5 mg Bisacodyl (Dulcolax) 10 mg [place] QDAY PRN PRN Reason: Constipation unrelieved by MOM Gabapentin (Neurontin) 300 mg PO BID [facility] Last Admin: 05/05/17 10:18 Dose: 300 mg Heparin Sodium (Porcine) (Heparin) 5,000 unit SUB-Q Q12HR EMILY Last Admin: 05/05/17 10:18 Dose: 5,000 unit Hydralazine HCl (Apresoline) 10 mg IV Q6H PRN PRN Reason: Hypertension Last Admin: 05/05/17 14:16 Dose: 10 mg Dextrose/Sodium Chloride (D5ns) 1,000 mls @ 125 mls/hr IV DIRECT EMILY Last Admin: 05/05/17 10:31 Dose: 125 mls/hr Miscellaneous Medication (Dorzolamide/Timolol/Pf [Cosopt Pf Eye Drops]) 1 drops OU TID EMILY Morphine Sulfate (Morphine) 2 mg IV Q4H PRN PRN Reason: Pain, Moderate (4-6) Last Admin: 05/04/17 22:13 Dose: 2 mg Ondansetron HCl (Zofran) 4 mg IV Q4H PRN PRN Reason: Nausea And Vomiting Simvastatin (Zocor) 40 mg PO QHS EMILY Last Admin: 05/05/17 03:45 Dose: Not Given Exam - Constitutional Vitals: Temp Pulse Resp BP Pulse Ox 98.2 F 92 H 18 187/105 98 05/05/17 12:10 05/05/17 14:16 05/05/17 07:40 05/05/17 14:16 05/05/17 12:09 Results - Labs CBC & Chem 7: 05/05/17 05:10 05/05/17 05:10 Labs: Abnormal lab results 05/05/17 05/05/17 Range/Units 05:10 05:10 Lymph % (Auto) 10.2 L (13.4-35.0) % Lymph # 0.6 L (1.2-5.4) K/mm3 Seg Neutrophils % 87.9 H (40.0-70.0) % Carbon Dioxide 21 L (22-30) mmol/L Creatinine 1.9 H (0.8-1.5) mg/dL Glucose 227 H (75-100) mg/dL Assessment and Plan LEFT URET STONE 12-14 mm AKD - Late Entry Time adj - Plan cysto, rpg, stent possible URS
[2017-05-06] MEDS: D5NS 1,000 ML IV SCH ×2 (03:46→10:40)
[2017-05-06] MEDS: APRESOLINE IV PRN (03:47)
[2017-05-06 08:23] LABS: Hematocrit 43.4 % (35.5-45.6); Mean Corpuscular HGB Conc 32 % (32-34); Mean Corpuscular Hemoglobin 29 pg (28-32); Mean Corpuscular Volume 90 fl (84-94); Platelet Count 211 K/mm3 (140-440); Red Blood Count 4.82 M/mm3 (3.65-5.03); Red Cell Distribution Width 13.7 % (13.2-15.2); White Blood Count 6.9 K/mm3 (4.5-11.0)
[2017-05-06 08:32] LABS: BUN/Creatinine Ratio 8.33; Calcium 9.2 mg/dL (8.4-10.2); Chloride 106.2 mmol/L (98-107); Potassium 4.9 mmol/L (3.6-5.0)
[2017-05-06] MEDS: HEPARIN SUB-Q SCH ×2 (10:00→22:00)
[2017-05-06] MEDS: NEURONTIN PO SCH ×2 (10:41→21:46)
[2017-05-06] MEDS: NORVASC PO SCH (10:41)
--- NOTE | 2017-05-06 13:33 | Progress Note ---
Assessment and Plan Assessment and plan: Patient is a 76-year-old black male with past medical history of hypertension and diabetes [place] who presented to the emergency department with a complaint of left-sided flank and left lower abdominal pain. Assessment/Plan Obstructive uropathy day #2 status post cystoscopy and stent placement Secondary to calculus CT of the abdomen revealed 12x6x8 millimeter calculus in the proximal to mid left ureter with mild to moderate left-sided hydroureteronephrosis . Acute kidney injury/acute tubular stasis secondary to Obstructing stone Hold Benazepril for now due to LEAH IV fluid hydration Much improved. Creatinine 1.2 today. Diabetes mellitus Accu-chek before meals and at bedtime. Sliding scale insulin/NovoLog ADA consistent carbohydrate diet Diabetic education Hypertension Hold Benazepril because of LEAH Resumed Amlodipine Closely monitor blood pressure Hyperlipidemia Resume home antilipid agents. Peripheral Neuropathy Resumed Gabapentin DVT prophylaxis Lovenox Poss d/c home tomorrow. History Interval history: feels better, no fever Hospitalist Physical - Constitutional Vitals: Temp Pulse Resp BP Pulse Ox 98.5 F 57 L 18 136/74 99 05/06/17 07:17 05/06/17 07:17 05/06/17 07:17 05/06/17 07:17 05/06/17 07:17 General appearance: Present: no acute distress Results - Labs CBC & Chem 7: 05/06/17 08:04 05/06/17 08:04 Labs: Laboratory Last Values WBC 6.9 K/mm3 (4.5-11.0) 05/06/17 08:04 RBC 4.82 M/mm3 (3.65-5.03) 05/06/17 08:04 Hgb 14.0 gm/dl (11.8-15.2) 05/06/17 08:04 Hct 43.4 % (35.5-45.6) 05/06/17 08:04 MCV 90 fl (84-94) 05/06/17 08:04 MCH 29 pg (28-32) 05/06/17 08:04 MCHC 32 % (32-34) 05/06/17 08:04 RDW 13.7 % (13.2-15.2) 05/06/17 08:04 Plt Count 211 K/mm3 (140-440) 05/06/17 08:04 Lymph % (Auto) 10.2 % (13.4-35.0) L 05/05/17 05:10 [place] % (Auto) 1.6 % (0.0-7.3) 05/05/17 05:10 Eos % (Auto) 0.0 % (0.0-4.3) 05/05/17 05:10 Baso % (Auto) 0.3 % (0.0-1.8) 05/05/17 05:10 Lymph # 0.6 K/mm3 (1.2-5.4) L 05/05/17 05:10 [place] # 0.1 K/mm3 (0.0-0.8) 05/05/17 05:10 Eos # 0.0 K/mm3 (0.0-0.4) 05/05/17 05:10 Baso # 0.0 K/mm3 (0.0-0.1) 05/05/17 05:10 Seg Neutrophils % 87.9 % (40.0-70.0) H 05/05/17 05:10 Seg Neutrophils # 5.1 K/mm3 (1.8-7.7) 05/05/17 05:10 Sodium 143 mmol/L (137-145) 05/06/17 08:04 Potassium 4.9 mmol/L (3.6-5.0) 05/06/17 08:04 Chloride 106.2 mmol/L (98-107) 05/06/17 08:04 Carbon Dioxide 23 mmol/L (22-30) 05/06/17 08:04 Anion Gap 19 mmol/L 05/06/17 08:04 BUN 10 mg/dL (9-20) 05/06/17 08:04 Creatinine 1.2 mg/dL (0.8-1.5) 05/06/17 08:04 Estimated GFR 59 ml/min 05/06/17 08:04 BUN/Creatinine Ratio 8.33 % 05/06/17 08:04 Glucose 135 mg/dL (75-100) H 05/06/17 08:04 Calcium 9.2 mg/dL (8.4-10.2) 05/06/17 08:04 Urine Color Yellow (Yellow) 05/04/17 08:05 Urine Turbidity Clear (Clear) 05/04/17 08:05 Urine pH 8.0 (5.0-7.0) H 05/04/17 08:05 Ur Specific [place] 1.018 (1.003-1.030) 05/04/17 08:05 Urine Protein <15 mg/dl mg/dL (Negative) 05/04/17 08:05 Urine Glucose (UA) Neg mg/dL (Negative) 05/04/17 08:05 Urine Ketones Neg mg/dL (Negative) 05/04/17 08:05 Urine Blood Mod (Negative) 05/04/17 08:05 Urine Nitrite Neg (Negative) 05/04/17 08:05 Urine Bilirubin Neg (Negative) 05/04/17 08:05 Urine Urobilinogen < 2.0 mg/dL (<2.0) 05/04/17 08:05 Ur Leukocyte Esterase Tr (Negative) 05/04/17 08:05 Urine WBC (Auto) 6.0 /HPF (0.0-6.0) 05/04/17 08:05 Urine RBC (Auto) 5.0 /HPF (0.0-6.0) 05/04/17 08:05
[2017-05-06] MEDS: ZOCOR PO SCH (21:46)
[2017-05-07] MEDS: D5NS 1,000 ML IV SCH (06:00)
[2017-05-07 06:04] LABS: Anion Gap 20 mmol/L; BUN/Creatinine Ratio 13.63; Blood Urea Nitrogen 15 mg/dL (9-20); Calcium 8.8 mg/dL (8.4-10.2); Carbon Dioxide 19 mmol/L (22-30); Chloride 106.2 mmol/L (98-107); Glucose 110 mg/dL (75-100); Potassium 4.2 mmol/L (3.6-5.0); Sodium 141 mmol/L (137-145)
--- NOTE | 2017-05-07 09:55 | Discharge Summary ---
Providers - Providers Date of Admission: 05/04/17 10:04 Date of discharge: 05/07/17 Attending physician: LADY COCHRAN Primary care physician: LESLEY BARROS MD Hospitalization Condition: Good Disposition: DC-01 TO HOME OR SELFCARE - Discharge Diagnoses (1) LEAH (acute kidney injury) Status: Acute (2) Hydronephrosis Status: Acute Qualifiers: Hydronephrosis type: with ureteral calculous obstruction Qualified Code(s) : N13.2 - Hydronephrosis with renal and ureteral calculous obstruction (3) Hypertension Status: Acute Qualifiers: Hypertension type: essential hypertension Qualified Code(s): I10 - Essential (primary) hypertension (4) Renal colic on left side Status: Acute Core Measure Documentation - Palliative Care Palliative Care/ Comfort Measures: Not Applicable - Core Measures Any of the following diagnoses?: none Exam - Constitutional Vitals: Temp Pulse Resp BP Pulse Ox 98.4 F 58 L 20 168/79 96 05/07/17 07:48 05/07/17 07:48 05/07/17 07:48 05/07/17 07:48 05/07/17 07:48 Plan Activity: advance as tolerated Diet: low salt, renal Additional Instructions: 1.Follow up with PCP in 1 week. 2.Follow up with Dr. Shah, Urology in 3-5 days. Follow up with: PRIMARY CAREMD [Primary Care Provider] - 3-5 Days Prescriptions: Ciprofloxacin HCl [Ciprofloxacin TAB] 500 mg PO Q12H #20 tab HYDROcodone/APAP 5-325 [[place] 5/325] 1 each PO Q6HR PRN #12 tablet PRN Reason: Pain
[2017-05-07] MEDS: NORVASC PO SCH (10:57)
[2017-05-07] MEDS: NEURONTIN PO SCH (10:57)
[2017-05-07] MEDS: APRESOLINE IV PRN (11:45)
[2017-05-07 13:12] VITALS: BP 147/74
== END 2017-05-07 14:20 | disposition home or self-care (01) | DRG 698 ==
LOC: ED 07:35 → 3A 10:04 → CC2 12:17 → 3B-SURG 22:26
PROVIDERS: ADMIT Internal Medicine; ATTEND Internal Medicine
PROC: 0T778DZ Dilation of Left Ureter with Intraluminal Device, Via Natural or Artificial Opening Endoscopic (ICD-10-PCS; principal; 2017-05-04)
PROC: BT1F1ZZ Fluoroscopy of Left Kidney, Ureter and Bladder using Low Osmolar Contrast (ICD-10-PCS; 2017-05-04)
DX: N13.9 Obstructive and reflux uropathy, unspecified (principal); N17.0 Acute kidney failure with tubular necrosis; N13.2 Hydronephrosis with renal and ureteral calculous obstruction; I12.9 Hypertensive chronic kidney disease with stage 1 through stage 4 chronic kidney disease, or unspecified chronic kidney disease; N18.9 Chronic kidney disease, unspecified; G62.9 Polyneuropathy, unspecified; E11.42 Type 2 diabetes mellitus with diabetic polyneuropathy; E78.5 Hyperlipidemia, unspecified; Z90.49 Acquired absence of other specified parts of digestive tract; Z82.49 Family history of ischemic heart disease and other diseases of the circulatory system; Z79.899 Other long term (current) drug therapy
CPT/HCPCS: 36415; 74420; 80048; 81001; 85025; 85027; 96361; 96374; C1726; C1758; C1769; C2617; J0360; J0690; J1100; J1644; J2270; J2405; J2704; J3010; J7030; J7042; J7120; Q9967

== ENCOUNTER 2017-05-18 07:06 | Day surgery (SDC) | payer MEDICARE, OTHER ==
--- NOTE | 2017-05-18 08:51 | Anesthesia Day of Surgery ---
Anesthesia Day of Surgery - Day of Surgery Patient Examined: Yes Patient H&P Reviewed: Yes Patient is NPO: Yes Beta Blockers: Yes
--- NOTE | 2017-05-18 08:51 | Anesthesia Consultation ---
Anesthesia Consult and Med Hx Date of service: 05/18/17 - Airway Anesthetic Teeth Evaluation: Dentures ROM Head & Neck: Adequate Mental/Hyoid Distance: Adequate Mallampati Class: Class II Intubation Access Assessment: Good - Pulmonary Exam CTA: Yes - Cardiac Exam Cardiac Exam: RRR - Pre-Operative Health Status ASA Pre-Surgery Classification: ASA2 - Cardiovascular System Hx Hypertension: Yes (x 2 yrs) Hx Heart Attack/AMI: No - Central Nervous System Hx Psychiatric Problems: No - Hematic Hx Anemia: No Hx Sickle Cell Disease: No - Other Systems Hx Alcohol Use: No Hx Substance Use: No Hx Cancer: No
[2017-05-18] MEDS ORDERED: ANCEF/STERILE WATER 2 GM/20 ML IV NR (09:00)
[2017-05-18] MEDS ORDERED: VERSED IV NR (09:00)
[2017-05-18] MEDS ORDERED: NACL 0.9% 1000 ML 1,000 ML IV SCH (09:00)
[2017-05-18] MEDS ORDERED: XYLOCAINE MPF 2% ONE (09:12)
[2017-05-18] MEDS ORDERED: DIPRIVAN 10 MG/ML IV ONE (09:12)
[2017-05-18] MEDS ORDERED: DILAUDID ONE (09:13)
[2017-05-18] MEDS ORDERED: DECADRON ONE (09:14)
[2017-05-18] MEDS ORDERED: ZOFRAN ONE (09:14)
--- NOTE | 2017-05-18 10:10 | Short Stay Summary ---
Short Stay Documentation Date of service: 05/18/17 - History H&P: obtained from office - Allergies and Medications Current Medications: Allergies No Known Allergies Allergy (Verified 05/18/17 08:49) Home Medications Medication Instructions Recorded Confirmed Last Taken Type Ondansetron [Zofran ODT TAB] 8 mg PO Q8HR #20 tab.rapdis 04/29/17 05/15/17 Unknown Rx Amlodipine Besylate/Benazepril 1 each PO QDAY 05/04/17 05/15/17 05/17/17 History [Lotrel 5-40 mg] Dorzolamide/Timolol/Pf [Cosopt Pf 1 drops OU TID 05/04/17 05/15/17 05/17/17 History Eye Drops] Gabapentin [Neurontin] 300 mg PO BID 05/04/17 05/15/17 05/17/17 History Pravastatin (Nf) [Pravachol] 80 mg PO QHS 05/04/17 05/15/17 05/17/17 History HYDROcodone/APAP 5-325 [[place] 1 each PO Q6HR PRN #12 tablet 05/07/17 05/15/17 Rx 5/325] Active Medications Cefazolin Sodium (Ancef/Sterile Water 2 Gm/20 Ml) 2 gm IV PREOP NR Stop: 05/18/17 21:00 Sodium Chloride (Nacl 0.9% 1000 Ml) 1,000 mls @ 42 mls/hr IV DIRECT EMILY Last Admin: 05/18/17 09:24 Dose: 42 mls/hr Midazolam HCl (Versed) 2 mg IV PREOP NR Stop: 05/18/17 23:59 Last Admin: 05/18/17 09:24 Dose: 2 mg - Brief post op/procedure progress note Date of procedure: 05/18/17 Pre-op diagnosis: lt uret 12mm Post-op diagnosis: same Procedure: left uret eswl Anesthesia: GETA Findings: stent good vis Surgeon: TOMMY CASANOVA Estimated blood loss: minimal Pathology: none Condition: stable - Hospital course Hospital course: or pacu home - Disposition Condition at discharge: Good Disposition: DC-01 TO HOME OR SELFCARE Short Stay Discharge Plan Activity: advance as tolerated Diet: advance as tolerated Follow up with: TOMMY CASANOVA MD [Staff Physician] - 7 Days
[2017-05-18] MEDS ORDERED: ePHEDrine SULFATE ONE (10:34)
--- NOTE | 2017-05-18 10:59 | Post Anesthesia Evaluation ---
- Post Anesthesia Evaluation Patient Participated: Yes Airway Patent: Yes Stable Respiratory Function: Yes Nausea/Vomiting: No Temp > 96.8F: Yes Pain Manageable: Yes Adequeate Hydration: Yes Anesthesia Complications: No
--- NOTE | 2017-05-18 12:08 | Operative Report ---
PREOPERATIVE DIAGNOSIS: Left proximal ureteral 12-14 mm stone. POSTOPERATIVE DIAGNOSIS: Left proximal ureteral 12-14 mm stone. PROCEDURE: Left ureteral ESWL stage 4 second treatment and stage for future stent removal. SURGEON: Shaan Shah MD ANESTHESIA: General. SPECIMENS: None. ESTIMATED BLOOD LOSS: Minimal. COMPLICATIONS: None. FINDINGS: Good visualization of the stone, focus target on lower half of the stone, which appeared to have very good fragmentation of the lower portion of the stone. IMPLANTS: None. CLINICAL INDICATIONS: The patient counseled RCBA, antibiotics, and SCDs. DESCRIPTION OF PROCEDURE: The patient was transferred to OR suite in supine position, anesthesia begun. Biplanar fluoroscopy was used to target the stone with an F2. There was excellent visualization of the stone. A total of 2500 shocks were delivered at a maximum of 5.0 kilovolts with intermittent repositioning done as necessary. By the end of the procedure, it appeared that the lower half of the stone had very good fragmentation due to size of the stone, this was planned for a staged treatment given the size of the stone to minimize steinstrasse and other problems and the amount of fragmentation during the requisite number of shockwave guideline to the maximum number of shockwaves. At the end of the procedure, the patient was awakened and transferred to PACU in good and stable condition. The patient had antibiotics and SCDs. JOB# [id number] ATS/NTS
[2017-05-18 17:55] VITALS: BP 122/71
== END 2017-05-18 12:40 | disposition home or self-care (01) ==
LOC: OR 07:06
PROVIDERS: ATTEND Urology
DX: N20.1 Calculus of ureter (principal); I10 Essential (primary) hypertension; E11.9 Type 2 diabetes mellitus without complications; Z90.49 Acquired absence of other specified parts of digestive tract; Z87.442 Personal history of urinary calculi; Z98.890 Other specified postprocedural states
CPT/HCPCS: 50590; 82962; J0690; J1100; J1170; J2250; J2405; J2704; J7030

== ENCOUNTER 2017-06-01 08:10 | Day surgery (SDC) | payer MEDICARE, OTHER ==
--- NOTE | 2017-06-01 08:39 | Anesthesia Day of Surgery ---
Anesthesia Day of Surgery - Day of Surgery Patient Examined: Yes Patient H&P Reviewed: Yes Patient is NPO: Yes
--- NOTE | 2017-06-01 08:39 | Anesthesia Consultation ---
Anesthesia Consult and Med Hx - Airway Anesthetic Teeth Evaluation: Edentulous ROM Head & Neck: Inadequate Mental/Hyoid Distance: Adequate Mallampati Class: Class II Intubation Access Assessment: Probably Good - Pulmonary Exam CTA: Yes - Cardiac Exam Cardiac Exam: RRR - Pre-Operative Health Status ASA Pre-Surgery Classification: ASA3 Proposed Anesthetic Plan: General - Pulmonary Hx Smoking: No Hx Sleep Apnea: No (JAZZY PRE SCREEN HIGH RISK) - Cardiovascular System Hx Hypertension: Yes (x 2 yrs) Hx Heart Attack/AMI: No - Central Nervous System Hx Psychiatric Problems: No - Endocrine Hx Non-Insulin Dependent Diabetes: Yes (borderline) - Hematic Hx Anemia: No Hx Sickle Cell Disease: No - Other Systems Hx Alcohol Use: No Hx Substance Use: No Hx Cancer: No
[2017-06-01] MEDS ORDERED: DILAUDID IV PRN (08:40)
[2017-06-01] MEDS ORDERED: ZOFRAN IV PRN (08:40)
[2017-06-01] MEDS ORDERED: PERCOCET 5/325 PO PRN (08:40)
[2017-06-01] MEDS ORDERED: PEPCID PO NR (09:00)
[2017-06-01] MEDS ORDERED: DIPRIVAN 10 MG/ML IV ONE (09:03)
[2017-06-01] MEDS: NACL 0.9% 1000 ML 1,000 ML IV SCH ×2 (09:03→11:19)
[2017-06-01] MEDS ORDERED: DECADRON ONE (09:05)
[2017-06-01] MEDS ORDERED: DILAUDID ONE (09:05)
[2017-06-01] MEDS ORDERED: ZOFRAN ONE (09:05)
[2017-06-01] MEDS ORDERED: XYLOCAINE MPF 2% ONE (09:05)
[2017-06-01] MEDS ORDERED: ANCEF/STERILE WATER 2 GM/20 ML IV NR (10:00)
[2017-06-01] MEDS ORDERED: ROBINUL ONE (10:30)
[2017-06-01] MEDS ORDERED: NACL 0.9% 1000 ML 1,000 ML ONE (10:31)
--- NOTE | 2017-06-01 10:46 | Short Stay Summary ---
Short Stay Documentation Date of service: 06/01/17 - History H&P: obtained from office - Allergies and Medications Current Medications: Allergies No Known Allergies Allergy (Verified 05/18/17 08:49) Home Medications Medication Instructions Recorded Confirmed Last Taken Type Amlodipine Besylate/Benazepril 1 each PO QDAY 05/04/17 06/01/17 05/31/17 21:00 History [Lotrel 5-40 mg] Dorzolamide/Timolol/Pf [Cosopt Pf 1 drops OU TID 05/04/17 06/01/17 05/31/17 12: 00 History Eye Drops] Gabapentin [Neurontin] 300 mg PO BID 05/04/17 06/01/17 05/31/17 21:00 History Pravastatin (Nf) [Pravachol] 80 mg PO QHS 05/04/17 06/01/17 05/31/17 21:00 History HYDROcodone/APAP 5-325 [[place] 1 each PO Q6HR PRN #12 tablet 05/07/17 05/30/17 Rx 5/325] Nitrofurantoin [place]/M-Cryst 100 mg PO Q12HR #14 capsule 05/18/17 05/30/17 Unknown Rx [Macrobid CAP] Ondansetron [Zofran ODT TAB] 8 mg PO Q8HR PRN 05/30/17 05/30/17 Unknown History Active Medications Cefazolin Sodium (Ancef/Sterile Water 2 Gm/20 Ml) 2 gm IV PREOP NR Stop: 06/01/17 23:59 Famotidine (Pepcid) 20 mg PO PREOP NR Stop: 06/01/17 23:59 Last Admin: 06/01/17 09:03 Dose: 20 mg Hydromorphone HCl (Dilaudid) 0.5 mg IV Q10MIN PRN PRN Reason: Pain , Severe (7-10) Stop: 06/01/17 23:59 Sodium Chloride (Nacl 0.9% 1000 Ml) 1,000 mls @ 100 mls/hr IV DIRECT EMILY Last Admin: 06/01/17 09:03 Dose: 100 mls/hr - Brief post op/procedure progress note Date of procedure: 06/01/17 Pre-op diagnosis: left ureteral stone Post-op diagnosis: same Procedure: LEFT ESWL Anesthesia: GETA Surgeon: ALEX ALVAREZ Estimated blood loss: none Condition: stable - Hospital course Hospital course: nenaro & iain on chart - Disposition Condition at discharge: Stable Disposition: DC-01 TO HOME OR SELFCARE Short Stay Discharge Plan Follow up with: BARB COLE MD [Primary Care Provider] - 7 Days
--- NOTE | 2017-06-01 11:12 | Operative Report ---
PREOPERATIVE DIAGNOSIS: Left proximal ureteral stone, 6 mm. POSTOPERATIVE DIAGNOSIS: Left proximal ureteral stone, 6 mm. PROCEDURE: Left extracorporal shockwave lithotripsy. SURGEON: Diaz Cotto MD. ANESTHESIA: General. ESTIMATED BLOOD LOSS: Minimal. FLUIDS: Crystalloid. COMPLICATIONS: No complications. INDICATIONS: This 76-year-old gentleman seen by Dr. Shah in the office with left proximal ureteral stone status post cysto ESWL. He presents now for staged procedure. DESCRIPTION OF PROCEDURE: The patient was taken to the operative suite and placed in a supine position. After adequate general anesthesia, stone was localized in 2 planes using fluoroscopy. Extracorporal shock wave lithotripsy was administered in maximum kV of 5 2500 shocks. Adequate fragmentation could be appreciated. He tolerated the procedure well and was extubated and taken to recovery room. [facility] [place] and follow up in the office. JOB# [id number] JAVIER/JASON
--- NOTE | 2017-06-01 11:31 | Post Anesthesia Evaluation ---
- Post Anesthesia Evaluation Patient Participated: Yes Airway Patent: Yes Stable Respiratory Function: Yes Temp > 96.8F: Yes Pain Manageable: Yes Adequeate Hydration: Yes Anesthesia Complications: No
[2017-06-01 15:23] VITALS: BP 114/62
== END 2017-06-01 15:11 | disposition home or self-care (01) ==
LOC: OR 08:10
PROVIDERS: ATTEND Urology
DX: N20.1 Calculus of ureter (principal); I10 Essential (primary) hypertension; E11.9 Type 2 diabetes mellitus without complications; Z98.890 Other specified postprocedural states; Z90.49 Acquired absence of other specified parts of digestive tract; Z79.899 Other long term (current) drug therapy
CPT/HCPCS: 50590; 82962; J0690; J1100; J1170; J2704; J7030; J2405

== ENCOUNTER 2017-09-06 09:04 | Outpatient (CLI) | payer MEDICARE, OTHER ==
--- NOTE | 2017-09-06 10:05 | Ultrasound Report ---
ULTRASOUND RENAL BILATERAL HISTORY: Calculus of kidney. TECHNIQUE: transabdominal ultrasound with color Doppler interrogation. FINDINGS: The right kidney measures 10.6 x 5.7 x 5.7cm. Right renal cortex: 1.1cm. The left kidney measures 10.4 x 4.7 x 6.9cm. Left renal cortex: 1.1cm. The kidneys are normal size, contour and position. There is increased renal parenchymal echotexture bilaterally consistent with nonspecific renal parenchymal disease. Corticomedullary differentiation is preserved. No evidence for cystic disease, mass, hydronephrosis or perinephric fluid. There is no obvious shadowing nephrolithiasis. Noncontrast CT abdomen pelvis on 04/29/17 demonstrated a proximal left ureteral calculus and slightly hyperdense renal periods which probably represents tiny calyceal stones which are not clearly seen on ultrasound. The views of the bladder and the region of the ureters appear normal. IMPRESSION: Renal parenchymal disease.
== END 2017-09-06 09:05 | disposition home or self-care (01) ==
LOC: US 09:04
PROVIDERS: ATTEND Urology
DX: N20.1 Calculus of ureter (principal); E11.9 Type 2 diabetes mellitus without complications; I10 Essential (primary) hypertension; E78.00 Pure hypercholesterolemia, unspecified
CPT/HCPCS: 76770

== ENCOUNTER 2017-10-12 14:31 | Outpatient (CLI) | payer MEDICARE, OTHER ==
--- NOTE | 2017-10-12 22:10 | XRay Report ---
FINAL REPORT PROCEDURE: XR ABDOMEN 1V AP TECHNIQUE: Single-view abdomen HISTORY: CALCULUS OF URETER COMPARISON: CT scan 04/29/2017 FINDINGS: Nonspecific bowel pattern. Small bowel loops in the 2.5 centimeter range right [place] abdomen may reflect ileus. Multiple phleboliths in the pelvis. 2 millimeter calcification projects to the right of L1. Possible tiny punctate calcifications project over left kidney obscured by bowel. Questionable tiny 4 millimeter calcification projects to the right of transverse process at L3 and possibly L4 but indeterminate. Possible hazy density left kidney area 5 millimeters If symptoms and or concern persists recommend followup CT scan with stone protocol IMPRESSION: Nonspecific bowel pattern. Small calcification right upper quadrant near L1 transverse process. Other calculi are questionable. If there is desire concern for ureteral calculus recommend CT scan stone protocol. Bowel obscures related to detect subtle calculi
== END 2017-10-12 14:32 | disposition home or self-care (01) ==
LOC: XRAY 14:31
PROVIDERS: ATTEND Urology
DX: N20.1 Calculus of ureter (principal); I87.8 Other specified disorders of veins
CPT/HCPCS: 74018

== ENCOUNTER 2018-02-22 13:34 | Outpatient (CLI) | payer MEDICARE, OTHER ==
--- NOTE | 2018-02-22 22:24 | XRay Report ---
FINAL REPORT EXAM: XR ABDOMEN 1V AP HISTORY: CALCULUS OF URETER TECHNIQUE: Supine abdomen PRIORS: Comparison is dated October 12 2017 FINDINGS: Again identified is a 4 millimeter calcification adjacent to L1 transverse process unchanged from prior exam which could be renal. No additional calcifications are identified in the upper abdomen. Multiple phleboliths are noted in the pelvis. Bowel gas pattern is unremarkable no evidence for colonic or small bowel distention. IMPRESSION: 4 millimeter calcification at the level of L1 transverse process unchanged from prior exam
== END 2018-02-22 13:35 | disposition home or self-care (01) ==
LOC: XRAY 13:34
PROVIDERS: ATTEND Urology
DX: N20.1 Calculus of ureter (principal); I87.8 Other specified disorders of veins; I10 Essential (primary) hypertension; E78.00 Pure hypercholesterolemia, unspecified; E07.9 Disorder of thyroid, unspecified; E11.9 Type 2 diabetes mellitus without complications; Z83.3 Family history of diabetes mellitus; Z90.49 Acquired absence of other specified parts of digestive tract
CPT/HCPCS: 74018

== ENCOUNTER 2018-03-06 14:44 | Outpatient (CLI) | payer MEDICARE, OTHER ==
--- NOTE | 2018-03-06 15:44 | Cat Scan Report ---
CT abdomen and pelvis without contrast: Evaluate for ureteral calculus. Unenhanced transverse images performed from lower chest to the ischium with coronal and sagittal 2-D reformatted images. The visualized lungs appear clear. The patient had a cholecystectomy. The abdominal organs are otherwise unremarkable. The left kidney is unremarkable. There are several tiny opacities in the superior and mid right kidney consistent with calculi. The largest of which is approximately 3 mm. No evidence of hydronephrosis, hydroureter, or ureteral calculus noted. The urinary bladder is contracted with no calculus. The prostate gland appears to be normal size. The retroperitoneal structures are not otherwise remarkable. The abdominal aorta is normal in size and contour. The unopacified bowel is grossly normal with no inflammatory changes noted. No lytic or blastic lesions. Significant degenerative narrowing of the L4-5 disc. Impressions: 1. Tiny nonobstructing right renal calculi. 2. No ureteral or bladder calculus.
== END 2018-03-06 14:45 | disposition home or self-care (01) ==
LOC: CT 14:44
PROVIDERS: ATTEND Urology
DX: N20.0 Calculus of kidney (principal); N20.1 Calculus of ureter; I10 Essential (primary) hypertension; E78.00 Pure hypercholesterolemia, unspecified; Z90.49 Acquired absence of other specified parts of digestive tract; Z83.3 Family history of diabetes mellitus
CPT/HCPCS: 74176